=== PATIENT | male | born 1975 | race African-American/Black ===

== ENCOUNTER 2017-10-04 03:43 | Emergency (ER) | payer BC ==
[2017-10-04] MEDS ORDERED: Vancomycin(*) 1,750 MG in NS 0.9% 250 ML* 250 ML IVPB ONE (04:14)
[2017-10-04] MEDS ORDERED: Morphine INJ* 4 MG/ML 1 ML SYRINGE (NEW SYRINGE VERSION) IV ONE (04:14)
[2017-10-04] MEDS ORDERED: Piperacillin/Tazobac ADVAN(*) 3.375 GM in NS 0.9% 100 ML* 100 ML IVPB ONE (04:15)
[2017-10-04] MEDS ORDERED: Vancomycin(*) 1,750 MG in NS 0.9% 500 ML* 500 ML IVPB STA (04:18)
[2017-10-04 04:53] LABS: ABS Basophils 0.1 10^3/ul (0-0.2); ABS Eosinophils 0.1 10^3/ul (0-0.6); ABS Lymphocytes 2.1 10^3/ul (1.0-4.8); ABS Monocytes 0.8 10^3/ul (0-0.8); ABS Neutrophils 5.8 10^3/ul (1.5-7.7); ABS Nucleated RBC 0 10^3/ul; Eosinophil % 0.9 % (0-6); Hematocrit 38 % (42-52); Lymphocyte % 23.5 % (25-47); Mean Corpuscular HGB Conc 34 g/dl (31-36); Mean Corpuscular Hemoglobin 30 pg (27-31); Mean Corpuscular Volume 89 fL (80-94); Mean Platelet Volume 7.8 um3 (7.4-10.4); Nucleated Red Blood Cells % 0.1; Platelet Count 318 10^3/ul (150-450); Red Blood Count 4.29 10^6/ul (4.0-5.4); Red Cell Distribution Width 14 % (10.5-15); White Blood Count 8.9 10^3/ul (3.5-10.8)
[2017-10-04] MEDS ORDERED: Zosyn per Pharmacy* NOTE FOLLOW UP SCH (05:00)
[2017-10-04 05:03] LABS: EGFR Non-African American 72.3 (>60)
--- NOTE | 2017-10-04 06:30 | ED ---
Seamus Mina Tecjoon, scribed for Santhosh Mcnamara MD on 10/04/17 at 0412 . Laceration/Wound HPI - HPI Summary HPI Summary: This patient is a 41 year old male presenting to [facility] accompanied by with a chief complaint of right pinky laceration since 5 days ago. Patient states that he was chopping food when his knife slipped and cut his finger. Patient states over the last 2-3 days his right pinky finger and hand are extremely swollen with increased pain radiating up the arm. The pain is rated 8/10 in severity. Pt states now also increased yellow/green drainage of wound. Patient denies fevers, chills, but does report decreased movement in finger. - History of Current Complaint Stated Complaint: RT HAND INFECTION Time Seen by Provider: 10/04/17 03:52 Hx Obtained From: Patient Mechanism of Injury: Sharp/Blunt Trauma - kitchen knife Onset/Duration: Lasting Days - 5, Still Present Aggravating: Nothing Alleviating: Nothing Onset Severity: Mild Current Severity: Severe Pain Intensity: 8 Pain Scale Used: 0-10 Numeric Associated Signs & Symptoms: Negative - fever, chills, Pain - Allergy/Home Medications Allergies/Adverse Reactions: Allergies Allergy/AdvReac Type Severity Reaction Status Date / Time No Known Allergies Allergy Verified 10/04/17 03:48 Home Medications: Home Medications NK [No Home Medications Reported] 10/04/17 [History Confirmed 10/04/17] PMH/Surg Hx/FS Hx/Imm Hx Previously Healthy: Yes Opthamlomology History: Denies: Hx Legally Blind EENT History: Denies: Hx Deafness Infectious Disease History: No Infectious Disease History: Denies: Traveled Outside the [place] in Last 30 Days - Family History Known Family History: Positive: Hypertension - Social History Lives: With Family Alcohol Use: None Hx Substance Use: No Substance Use Type: Reports: None Hx Tobacco Use: No Smoking Status (MU): Never Smoked Tobacco Review of Systems Negative: Fever, Chills Positive: Other - right pinky laceration/infection All Other Systems Reviewed And Are Negative: Yes Physical Exam - Summary Physical Exam Summary: Appearance: Well-appearing, no distress, Well-nourished Skin: Warm, color reflects adequate perfusion Head: Normal Head/Face inspection Eyes: Conjunctiva clear ENT: Normal inspection Neck: Supple, Respiratory: Lungs clear, Normal breath sounds, no respiratory distress Cardio: RRR, No murmur, pulses normal, brisk capillary refill Musculoskeletal: Severe, uniform swelling of right 5th digit with open wound, green/yellow pus drainage. Decreased ROM with flexion posture, swelling to dorsum of the lateral aspect of right hand, sensation intact. Pain with passive extension Neuro: Alert, muscle tone normal, speech normal, sensory/motor intact Psychological: Normal Triage Information Reviewed: Yes Vital Signs On Initial Exam: Initial Vitals Temp Pulse Resp BP Pulse Ox 98.8 F 81 16 145/66 99 10/04/17 03:47 10/04/17 03:47 10/04/17 03:47 10/04/17 03:47 10/04/17 03:47 Vital Signs Reviewed: Yes Diagnostics - Vital Signs Vital Signs Temp Pulse Resp BP Pulse Ox 10/04/17 03:47 98.8 F 81 16 145/66 99 - Laboratory Lab Results: Lab Results 10/04/17 10/04/17 10/04/17 Range/Units 04:33 04:33 04:33 WBC 8.9 (3.5-10.8) 10^3/ul RBC 4.29 (4.0-5.4) 10^6/ul Hgb 13.0 L (14.0-18.0) g/dl Hct 38 L (42-52) % MCV 89 (80-94) fL MCH 30 (27-31) pg MCHC 34 (31-36) g/dl RDW 14 (10.5-15) % Plt Count 318 (150-450) 10^3/ul MPV 7.8 (7.4-10.4) um3 Neut % (Auto) 65.8 (38-83) % Lymph % (Auto) 23.5 L (25-47) % Arthur % (Auto) 8.8 H (0-7) % Eos % (Auto) 0.9 (0-6) % Baso % (Auto) 1.0 (0-2) % Absolute Neuts (auto) 5.8 (1.5-7.7) 10^3/ul Absolute Lymphs (auto) 2.1 (1.0-4.8) 10^3/ul Absolute Monos (auto) 0.8 (0-0.8) 10^3/ul Absolute Eos (auto) 0.1 (0-0.6) 10^3/ul Absolute Basos (auto) 0.1 (0-0.2) 10^3/ul Absolute Nucleated RBC 0 10^3/ul Nucleated RBC % 0.1 Sodium 136 (133-145) mmol/L Potassium 3.8 (3.5-5.0) mmol/L Chloride 103 (101-111) mmol/L Carbon Dioxide 26 (22-32) mmol/L Anion Gap 7 (2-11) mmol/L BUN 12 (6-24) mg/dL Creatinine 1.11 (0.67-1.17) mg/dL Est GFR ( Amer) 93.0 (>60) Est GFR (Non-Af Amer) 72.3 (>60) BUN/Creatinine Ratio 10.8 (8-20) Glucose 103 H (70-100) mg/dL Lactic Acid 0.9 (0.5-2.0) mmol/L Calcium 9.4 (8.6-10.3) mg/dL Total Bilirubin 0.60 (0.2-1.0) mg/dL AST 12 L (13-39) U/L ALT 7 (7-52) U/L Alkaline Phosphatase 63 (34-104) U/L Total Protein 8.3 (6.4-8.9) g/dL Albumin 4.2 (3.2-5.2) g/dL Globulin 4.1 H (2-4) g/dL Albumin/Globulin Ratio 1.0 (1-3) Result Diagrams: 10/04/17 04:33 10/04/17 04:33 Lab Statement: Any lab studies that have been ordered have been reviewed, and results considered in the medical decision making process. Re-Evaluation - Re-Evaluation First Eval Re-Evaluation Time: 06:14 Change: Improved Comment: Pt pain improved with IV analgesia. Pt given IV Vancomycin and Zosyn. Pt requiring I&D with [facility] in the OR. Plan for transfer to [facility] for surgical treatment. Laceration Repair Course/Dx - Course Assessment/Plan: Spoke with Dr. Yee (Ortho-Hand) at [facility] with plan for transfer for surgical intervention. Pt accepted by Dr. Andrade (EM) for transfer to ED. - Differential Dx Differental Diagnoses: Abrasion, Cellulitis, Joint Infection, Tendon Laceration , Tenosynovitis - Clinical Impression Provider Diagnoses: Flexor tenosynovitis of finger - Physician Notifications Discussed Care Of Patient With: Osman Underwood - Orthopedic Surgeon Time Discussed With Above Provider: 05:16 - We discussed patient care with Dr. Underwood (Orthopedics), who referred the patient to another surgeon more qualified to take this particular case. Discharge - Sign-Out/Discharge Documenting (check all that apply): Discharge - Discharge Plan Condition: Stable Disposition: TRANS HIGHER LVL OF CARE FAC Referrals: No Primary Care Phys,NOPCP [Primary Care Provider] - - Billing Disposition and Condition Condition: STABLE Disposition: EMTALA The documentation as recorded by the Seamus rockwell Tecjoon accurately reflects the service I personally performed and the decisions made by , Santhosh Mcnamara MD.
[2017-10-04 06:46] VITALS: BP 122/69
[2017-10-04] MEDS ORDERED: HYDROmorphone INJ* 2 MG/ML CARPUJECT SYRINGE IV SLOW PU ONE (07:26)
--- NOTE | 2017-10-04 09:45 | RAD ---
Indication: RIGHT hand fifth digit swelling 5 days post laceration while chopping wood. Comparison: No relevant prior exams available on the [facility] [place] PACS for comparison. Technique: AP and lateral views RIGHT hand. REPORT AND IMPRESSION: While detail is limited there is suggestion of a 3 mm length sliver-shaped foreign body within the soft tissues at the dorsal aspect of the fifth finger at the level of the distal interphalangeal joint. Negative for subcutaneous emphysema. Negative for fracture or malalignment. Results discussed with charge nurse Shania 10/04/2017 9:41 AM EDT
[2017-10-04] MEDS ORDERED: ZOSYN 3.375 GM Q6H - Intermittant 30 min Infusion IVPB SCH ×2 (10:00)
== END 2017-10-04 06:58 | disposition short-term general hospital (02) ==
LOC: ED 03:43
DX: M65.841 Other synovitis and tenosynovitis, right hand (principal)
CPT/HCPCS: 36415; 80053; 83605; 85025; 87040; 96365; 96367; 96375; 99283; J1170; J2270; J2543; J3370

== ENCOUNTER 2018-04-16 23:23 | Emergency (ER) | payer SELFPAY ==
[2018-04-17] MEDS ORDERED: cefTRIAXone VIAL(*) 250 MG VIAL IM ONE (00:36)
[2018-04-17] MEDS ORDERED: Azithromycin TAB* 250 MG PO ONE (00:36)
--- NOTE | 2018-04-17 00:44 | ED ---
GI/ HPI - HPI Summary HPI Summary: The patient is a 42 y/o M presenting to [facility] with a chief complaint of penile discharge starting two days ago and left testicular swelling starting today. He states the pain started when he was lifting a box, but he had unprotected vaginal intercourse 4 days ago. He denies hematuria. He has not had this pain before, but the pain is worsening, and is currently rated 8/10 in severity. - History of Current Complaint Chief Complaint: EDGeneral Time Seen by Provider: 04/17/18 00:33 Stated Complaint: TESTICULAR PAIN Hx Obtained From: Patient Onset/Duration: Started Days Ago - discharge - 2 days, swelling - today Timing: Lasting Days Severity: Mild Current Severity: Moderate Pain Intensity: 8 Additional Locations for Males: Testicles - left Associated Signs and Symptoms: Positive: Other: - left testicular swelling. Negative: Hematuria Additional Signs & Symptoms: Positive: Penile Discharge Aggravating Factor(s): Nothing Alleviating Factor(s): Nothing - Allergy/Home Medications Allergies/Adverse Reactions: Allergies Allergy/AdvReac Type Severity Reaction Status Date / Time No Known Allergies Allergy Verified 04/16/18 23:34 PMH/Surg Hx/FS Hx/Imm Hx Endocrine/Hematology History: Denies: Hx Diabetes Respiratory History: Denies: Hx Asthma Sensory History: Denies: Hx Legally Blind, Hx Deafness Opthamlomology History: Denies: Hx Legally Blind - Surgical History Surgery Procedure, Year, and Place: none Infectious Disease History: No Infectious Disease History: Denies: Traveled Outside the US in Last 30 Days - Family History Known Family History: Positive: Hypertension - Social History Alcohol Use: None Hx Substance Use: No Substance Use Type: Reports: None Hx Tobacco Use: No Smoking Status (MU): Never Smoked Tobacco Review of Systems Negative: Abdominal Pain Positive: other - discharge from penis, swelling in left testicle. Negative: hematuria All Other Systems Reviewed And Are Negative: Yes Physical Exam - Summary Physical Exam Summary: Appearance: Well-appearing, Well-nourished, lying in bed comfortably Skin: Warm, dry, no obvious rash Eyes: sclera anicteric, no conjunctival pallor ENT: mucous membranes moist, pharynx appears normal Neck: Supple, nontender Respiratory: Clear to auscultation, no signs of respiratory distress Cardiovascular: Normal S1, S2. No murmurs. Normal distal pulses in tibial and radial bilaterally. Abdomen: Soft, nontender, normal active bowel sounds present Exam: Left testicular tenderness without significant swelling Musculoskeletal: Normal, Strength/ROM Intact Neurological: A&Ox3, awake and alert, mentation is normal, speech is fluent and appropriate Psychiatric: affect is normal, does not appear anxious or depressed Triage Information Reviewed: Yes Vital Signs On Initial Exam: Initial Vitals Temp Pulse Resp BP Pulse Ox 98.5 F 95 18 124/61 97 04/16/18 23:31 04/16/18 23:31 04/16/18 23:31 04/16/18 23:31 04/16/18 23:31 Vital Signs Reviewed: Yes Diagnostics - Vital Signs Vital Signs Temp Pulse Resp BP Pulse Ox 04/16/18 23:31 98.5 F 95 18 124/61 97 - Laboratory Lab Statement: Any lab studies that have been ordered have been reviewed, and results considered in the medical decision making process. GIGU Course/Dx - Diagnoses Provider Diagnoses: Epididymoorchitis Discharge - Sign-Out/Discharge Documenting (check all that apply): Patient Departure - Patient will be discharged home. - Discharge Plan Condition: Good Disposition: HOME Patient Education Materials: Sexually Transmitted Diseases (ED), Epididymo- Orchitis (ED) Referrals: [facility] [Outside] [facility] [Outside] - If Needed No Primary Care Phys,NOPCP [Primary Care Provider] - Additional Instructions: I expect your symptoms to start improving over the weekend, if not we should see you back here on Thursday. You can take alleve or motrin for the pain, and sometimes resting the scrotum on an ice pack wrapped in a towel can help with the pain. - Billing Disposition and Condition Condition: GOOD Disposition: Home - Attestation Statements Document Initiated by Moyibe: Yes Documenting Scribe: Marly Byrnes Provider For Whom Santiago is Documenting (Include Credential): Dr. Farooq Houser MD Scribe Attestation: Marly Mina, scribed for Dr. Farooq Houser MD on 04/17/18 at 0309. Scribe Documentation Reviewed: Yes Provider Attestation: The documentation as recorded by the Marly rockwell accurately reflects the service I personally performed and the decisions made by me, Dr. Farooq Houser MD
[2018-04-17] MEDS ORDERED: Lidocaine 1%* 5 ML VIAL ONE (01:11)
[2018-04-17 01:32] LABS: Urine Appearance Turbid; Urine Blood 3+ (Negative); Urine Color Yellow; Urine Ketones Trace (Negative); Urine Protein 2+(100 mg/dL) (Negative); Urine Red Blood Cell 3+(>10/hpf) (Absent); Urine Specific Gravity 1.028 (1.010-1.030); Urine Urobilinogen Positive (Negative); Urine White Blood Cell 3+(>20/hpf) (Absent)
[2018-04-17 01:34] VITALS: BP 124/62
== END 2018-04-17 01:34 | disposition home or self-care (01) ==
LOC: ED 23:23
DX: N45.3 Epididymo-orchitis (principal); N50.89 Other specified disorders of the male genital organs
CPT/HCPCS: 81003; 81015; 87086; 96372; 99283; A9270-GY; J0696

== ENCOUNTER 2019-04-13 10:09 | Emergency (ER) | payer OTHER ==
--- NOTE | 2019-04-13 11:49 | ED ---
Skin Complaint - HPI Summary HPI Summary: Pt is a 43 y/o M presenting to the ED for a chief complaint of a skin rash. He has had the rash on his bilateral hands and feet with pruritus and cracking of the skin. Pt states the skin is odorous. His symptoms come and go and pt states he applies lotion to his bilateral hands and feet after showering. Pt denies any skin lesion anywhere else on the body or fever. Due to his job, pt states he is unable to ventilate his hands and feet. He has seen a oiler bander in the past, but has not been prescribed any medications. He has an appointment to see dermatology on 04/20/19 and sees the oiler bander, Dr. Osullivan at [facility]. Pt denies PMHx of eczema, any PSHx, or any significant FMHx. Allergies noted. - History of Current Complaint Chief Complaint: EDGeneral Time Seen by Provider: 04/13/19 11:26 Stated Complaint: BOTH HANDS/LEFT FOOT INJURIES PER PT Hx Obtained From: Patient Onset/Duration: Started Weeks Ago, Atraumatic, Still Present Skin Exposure Onset/Duration: Weeks Ago Timing: Lasting Weeks Onset Severity: Moderate Current Severity: Moderate Pain Intensity: 4 Pain Scale Used: 0-10 Numeric Skin Location: Other: - Bilateral hands and feet Character: Pruritus - Bilateral hands and feet Aggravating Symptom(s): Nothing Alleviating Symptom(s): Nothing Associated Signs & Symptoms: Negative - Allergy/Home Medications Allergies/Adverse Reactions: Allergies Allergy/AdvReac Type Severity Reaction Status Date / Time No Known Allergies Allergy Verified 04/16/18 23:34 PMH/Surg Hx/FS Hx/Imm Hx Previously Healthy: Yes Endocrine/Hematology History: Denies: Hx Diabetes Respiratory History: Denies: Hx Asthma Sensory History: Denies: Hx Legally Blind, Hx Deafness Opthamlomology History: Denies: Hx Legally Blind - Surgical History Surgical History: None Surgery Procedure, Year, and Place: none Hx Anesthesia Reactions: No Infectious Disease History: No Infectious Disease History: Denies: Traveled Outside the [place] in Last 30 Days - Family History Known Family History: Positive: Hypertension - Social History Alcohol Use: None Hx Substance Use: No Substance Use Type: Reports: None Hx Tobacco Use: No Smoking Status (MU): Never Smoked Tobacco Review of Systems Negative: Fever Positive: Other - Positive pruritus, cracking, and odorous skin on the bilateral hands and feet; negative skin lesions All Other Systems Reviewed And Are Negative: Yes Physical Exam - Summary Physical Exam Summary: Constitutional: Well-developed, Well-nourished, Alert. (-) Distressed Skin: Warm, Dry. Papular rash on hands and feet. on L foott, breakdown of skin between 3rd and 4th, and 4th and 5th toes with mild erythema/maceration of skin. HENT: Normocephalic; Atraumatic Eyes: Conjunctiva normal Neck: Musculoskeletal ROM normal neck. (-) JVD, (-) Stridor, (-) Nuchal rigidity Cardio: Rhythm regular, rate normal, Heart sounds normal; Intact distal pulses; Radial pulses are 2+ and symmetric. (-) Murmur Pulmonary/Chest wall: Effort normal. (-) Respiratory distress, (-) Wheezes, (-) Rales Abd: Soft, (-) tenderness, (-) Distension, (-) Guarding, (-) Rebound Musculoskeletal: (-) Edema Lymph: (-) Cervical adenopathy Neuro: Alert, Oriented x3 Psych: Mood and affect Normal Triage Information Reviewed: Yes Vital Signs On Initial Exam: Initial Vitals Temp Pulse Resp BP Pulse Ox 97.3 F 75 18 123/80 98 04/13/19 10:16 04/13/19 10:16 04/13/19 10:16 04/13/19 10:16 04/13/19 10:16 Vital Signs Reviewed: Yes Procedures - Sedation Patient Received Moderate/Deep Sedation with Procedure: No Diagnostics - Vital Signs Vital Signs Temp Pulse Resp BP Pulse Ox 04/13/19 10:16 97.3 F 75 18 123/80 98 - Laboratory Lab Statement: Any lab studies that have been ordered have been reviewed, and results considered in the medical decision making process. Course/Dx - Course Course Of Treatment: 43 y/o male w rash to hands/feet. - PE w papular rash, some skin breakdown between toes w macerated skin and erythema. reported drainage so will treat w keflex to cover bacterial infection. Told to keep dry as I feel moisture is contributing to skin breakdown. Neg syphillis in 2018 when rash began. Appears c/w dyshydrotic eczema. Has derm apt 04/20. Advised he can get labwork w PCP. referral made. - Diagnoses Provider Diagnoses: Rash Discharge ED - Sign-Out/Discharge Documenting (check all that apply): Patient Departure - Discharge - Discharge Plan Condition: Stable Disposition: HOME Prescriptions: Cephalexin CAP* [Keflex CAP*] 500 mg PO QID 7 Days #28 cap Patient Education Materials: Dyshidrotic Eczema (ED) Referrals: [facility] [Outside] Additional Instructions: You were seen in the emergency department for a rash. This is likely consistent with your previous known rash. Please follow up with dermatology as scheduled on April 20. Please take Keflex, an antibiotic for cellulitis. - Billing Disposition and Condition Condition: STABLE Disposition: Home - Attestation Statements Document Initiated by Scribe: Yes Documenting Scribe: Pamela Hastings Provider For Whom Santiago is Documenting (Include Credential): Samanta Black MD. Scribe Attestation: Pamela Mina, scribed for Samanta Black MD. on 04/13/19 at 1208. Scribe Documentation Reviewed: Yes Provider Attestation: The documentation as recorded by the scribePamela accurately reflects the service I personally performed and the decisions made by , Samanta Black MD. Status of Scribe Document: Viewed
[2019-04-13] MEDS: Cephalexin CAP* 500 MG PO ONE (11:59)
[2019-04-13 12:00] VITALS: BP 108/80
== END 2019-04-13 12:02 | disposition home or self-care (01) ==
LOC: ED 11:07
DX: R21 Rash and other nonspecific skin eruption (principal)
CPT/HCPCS: 99282; A9270-GY

== ENCOUNTER 2019-05-17 01:08 | Emergency (ER) | payer OTHER ==
--- OUTSIDE RECORDS SUMMARY | 2019-05-17 01:27 | XMS REPORT | Continuity of Care Document ---
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 No Information Available Social History Type Date Description Comments Sex Unknown Tobacco Use Start: Unknown Patient is a current smoker, smokes 1 ppd x 25 yrs every day Smoking Status Reviewed: 04/29/19 Patient is a current smoker, smokes 1 ppd x 25 yrs every day Allergies, Adverse Reactions, Alerts Description No Known Drug Allergies Medications Active Medications SIG Qnty Indications Ordering Date Provider Nicotrol 2 every 2 hours 336units Z72.0 Cyn Garcia, 04/29/2019 10mg Inhaler as needed DO Ra Nicotine Gum use every 2 100units Z72.0 Cyn Garcia, 04/29/2019 2mg Gum hours as needed DO for cravings Clobetasol Propionate apply to hands 30gm L24.89 Cyn Garcia, 2018 twice a day for DO 0.05% Cream two weeks, then stop BD Sensicare wear to work 100units L24.89 Cyn Garcia, 04/29/2019 [employer] daily DO Gloves Large Misc Ciprofloxacin HCL Take 1 Tablet By Unknown 500mg Mouth Two Times Tablets Daily For 2 Weeks Immunizations Description No Information Available Vital Signs Date Vital Result Comment 04/29/2019 8:01am Height 66 inches 5'6" Weight 161.00 lb Heart Rate 80 /min BP Systolic Sitting 110 mmHg BP Diastolic Sitting 62 mmHg Respiratory Rate 14 /min Body Temperature 96.9 F Pain Level 7 bilateral hands O2 % BldC Oximetry 99 % BMI (Body Mass Index) 26.0 kg/m2 Results Test Date Facility Test Result H/L Range Note Laboratory test 04/29/2019 [facility] Hemoglobin A1c <pending> finding [address] (Glyco HGB) [place] [address] [phone] Laboratory test 04/29/2019 [facility] Hepatitis C <pending> finding [address] [place] [address] [phone] Vitamin B12 And 04/29/2019 [facility] Vitamin B12 <pending> Folate Serum [address] [place] [address] [phone] Folic Acid (Folate) <pending> Laboratory test finding 04/29/2019 [facility] Ferritin <pending > [address] [place] [address] [phone] Procedures Date Code Description Status 04/20/2019 27526 Tangential Biopsy Of Skin, Single Lesion Completed Medical Devices Description No Information Available Encounters Type Date Location Provider Dx Diagnosis Office Visit 03/25/2019 [facility] Wendy Michelle L85.8 Other specified 11:00a epidermal thickening Assessments Date Code Description Provider 04/29/2019 Z00.01 Encounter for general adult medical examination Cyn Garcia DO with abnormal findings 04/29/2019 Z72.0 Tobacco use Cyn Garcia DO 04/29/2019 L24.89 Irritant contact dermatitis due to other agents Cyn Garcia DO 04/29/2019 I88.9 Nonspecific lymphadenitis, unspecified Cyn Garcia DO 04/20/2019 L30.9 Dermatitis, unspecified Wendy Michelle MD 03/25/2019 L85.8 Other specified epidermal thickening Wendy Michelle MD Plan of Treatment Future Appointment(s):05/30/2019 8:00 am - Cyn Garcia DO at [facility] - [address] - Cyn Garcia DOZ00.01 Encounter for general adult medical examination with abnormal vkkaiytjP20.0 Tobacco useNew Medication: Nicotrol 10 mg - 2 every 2 hours as neededRa Nicotine Gum 2 mg - use every 2 hours as needed for ksnrrfzwG70.89 Irritant contact dermatitis due to other agentsNew Medication:Clobetasol Propionate 0.05 % - apply to hands twice a day for two weeks, then stopBD Sensicare [employer] Gloves Large - wear to work eqlixS69.9 Nonspecific lymphadenitis, unspecifiedFollow up:one month Functional Status Description No Information Available Mental Status Description No Information Available Referrals Description No Information Available
[2019-05-17] MEDS ORDERED: NS 0.9% 1000 ML** 1,000 ML IV ONE (02:10)
[2019-05-17 02:47] LABS: ABS Basophils 0.1 10^3/ul (0-0.2); ABS Eosinophils 0.2 10^3/ul (0-0.6); ABS Lymphocytes 1.9 10^3/ul (1.0-4.8); ABS Monocytes 0.6 10^3/ul (0-0.8); ABS Neutrophils 4.8 10^3/ul (1.5-7.7); Eosinophil % 2.1 %; Hematocrit 39 % (42-52); Hemoglobin 12.6 g/dL (14.0-18.0); Mean Corpuscular HGB Conc 33 g/dL (31-36); Mean Corpuscular Hemoglobin 30 pg (27-31); Mean Corpuscular Volume 91 fL (80-94); Mean Platelet Volume 7.9 fL (7.4-10.4); Platelet Count 267 10^3/uL (150-450); Red Blood Count 4.23 10^6 /uL (4.18-5.48); Red Cell Distribution Width 13 % (10-15); White Blood Count 7.5 10^3/uL (3.5-10.8)
[2019-05-17 02:53] LABS: INR 0.99 (0.82-1.09)
[2019-05-17] MEDS ORDERED: Piperacillin/Tazobac ADVAN(*) 3.375 GM in NS 0.9% 100 ML* 100 ML IVPB ONE (02:57)
--- NOTE | 2019-05-17 02:57 | ED ---
Upper Extremity Pain - HPI Summary HPI Summary: The patient is a 43 y/o M presenting to [facility] with a chief complaint of a swelling to the left palmar hand near the pinky with pain in the second, fourth , and fifth fingers onset two days ago. He reports that he has had abscesses before, and he usually cuts them with a knife, which he did to his hand yesterday. He is unsure of the origin of the abscess. He states purulent drainage with decreased ROM in the hand, but he denies any fever, nausea, or vomiting. Currently. He rates the pain 9/10 in severity. PMHx: right hand surgery for infection. Nonsmoker, no EtOH, no substance use. Medications reviewed. Allergies noted. - History of Current Complaint Chief Complaint: EDExtremityUpper Stated Complaint: L HAND SWOLLEN PER PT Time Seen by Provider: 05/17/19 02:13 Hx Obtained From: Patient Mechanism Of Injury: Unknown - unsure of origin Onset/Duration: Started Days Ago - two, Still Present Timing: Lasting Days Severity Initially: Mild Severity Currently: Moderate Pain Location: Hand - left Character: Dull Aggravating Factor(s): Nothing Alleviating Factor(s): Nothing Associated Signs & Symptoms: Positive: Other - drainage from swelling in hand after cutting it. Negative: Fever, Nausea, Vomiting - Allergies/Home Medications Allergies/Adverse Reactions: Allergies Allergy/AdvReac Type Severity Reaction Status Date / Time No Known Allergies Allergy Verified 05/17/19 01:22 PMH/Surg Hx/FS Hx/Imm Hx Endocrine/Hematology History: Denies: Hx Diabetes Respiratory History: Denies: Hx Asthma Sensory History: Denies: Hx Legally Blind, Hx Deafness Opthamlomology History: Denies: Hx Legally Blind - Surgical History Surgical History: Yes Surgery Procedure, Year, and Place: right hand surgery in [place] Hx Anesthesia Reactions: No Infectious Disease History: No Infectious Disease History: Denies: Traveled Outside the [place] in Last 30 Days - Family History Known Family History: Positive: Hypertension - Social History Alcohol Use: None Hx Substance Use: No Substance Use Type: Reports: None Hx Tobacco Use: No Smoking Status (MU): Never Smoked Tobacco Review of Systems - ROS Summary Review of Systems Summary: Home Medications Medication Instructions Recorded Confirmed Type Amoxicillin/Clavulanate TAB* 875 mg PO BID #20 tab 05/17/19 Rx [Augmentin TAB 875*] Negative: Fever Negative: Vomiting, Nausea Positive: Other - pain in the left hand wtih decreased ROM Positive: Other - swelling of the hand on the palmar surface at the pinky, purulent drainage All Other Systems Reviewed And Are Negative: Yes Physical Exam - Summary Physical Exam Summary: General: Well-developed, Well-nourished male. No acute distress. HEENT: Normocephalic, Atraumatic. Eyes: Conjuctiva normal, PERRL. Ears: TMs within normal limits. Nares: (-) discharge, (-) erythema. Oropharynx: Clear, mucous membranes moist, (-) exudates. Neck: Soft, FROM, (-) lymphadenopathy, (-) thyromegaly, (-) JVD. Cardiovascular: Normal sinus rhythm, (-) murmur. Lungs: Clear to auscultation bilaterally (-) wheezes, (-) rales, (-) rhonchi. Abdomen: Soft, non-tender, non-distended, (-) organomegaly, normal bowel sounds. Back: (-) CVA tenderness Extremities: Moderately swollen left hand at the palm with a laceration present , Decreased ROM of the fingers with swelling of the fourth and fifth and tenderness of the second, four, and fifth fingers. No edema. Skin: Warm, dry, (-) rash. Neuro: Alert and oriented x3, no focal deficits. Psychiatric: Mood normal, affect normal. Triage Information Reviewed: Yes Vital Signs On Initial Exam: Initial Vitals Temp Pulse Resp BP Pulse Ox 99.5 F 75 15 123/75 99 05/17/19 01:20 05/17/19 01:20 05/17/19 01:20 05/17/19 01:20 05/17/19 01:20 Vital Signs Reviewed: Yes Procedures - Sedation Patient Received Moderate/Deep Sedation with Procedure: No Diagnostics - Vital Signs Vital Signs Temp Pulse Resp BP Pulse Ox 05/17/19 01:20 99.5 F 75 15 123/75 99 - Laboratory Lab Results: Lab Results 05/17/19 Range/Units 02:31 WBC 7.5 (3.5-10.8) 10^3/uL RBC 4.23 (4.18-5.48) 10^6 /uL Hgb 12.6 L (14.0-18.0) g/dL Hct 39 L (42-52) % MCV 91 (80-94) fL MCH 30 (27-31) pg MCHC 33 (31-36) g/dL RDW 13 (10-15) % Plt Count 267 (150-450) 10^3/uL MPV 7.9 (7.4-10.4) fL Neut % (Auto) 64.7 % Lymph % (Auto) 25.0 % [place] % (Auto) 7.4 % Eos % (Auto) 2.1 % Baso % (Auto) 0.8 % Absolute Neuts (auto) 4.8 (1.5-7.7) 10^3/ul Absolute Lymphs (auto) 1.9 (1.0-4.8) 10^3/ul Absolute Monos (auto) 0.6 (0-0.8) 10^3/ul Absolute Eos (auto) 0.2 (0-0.6) 10^3/ul Absolute Basos (auto) 0.1 (0-0.2) 10^3/ul Absolute Nucleated RBC 0.0 10^3/ul Nucleated RBC % 0.0 Result Diagrams: 05/17/19 02:31 11 02:31 Lab Statement: Any lab studies that have been ordered have been reviewed, and results considered in the medical decision making process. Re-Evaluation - Re-Evaluation First Eval Re-Evaluation Time: 04:40 Change: Improved Comment: I have discussed results with the patient and pain is improved. Discussed symptoms that warrant immediate return to ED. Course/Dx - Course Course Of Treatment: 43-year-old male with abscess of left hand. Patient had normal white count. Normal lactic acid. No fevers. Treated with IV Zosyn. Patient discharged home on Augmentin. Recheck within 24 hours. Follow-up sooner for any worsening symptoms. - Diagnoses Provider Diagnoses: Abscess of hand, left Discharge ED - Sign-Out/Discharge Documenting (check all that apply): Patient Departure - Patient will be discharged home. - Discharge Plan Condition: Stable Disposition: HOME Prescriptions: Amoxicillin/Clavulanate TAB* [Augmentin TAB 875*] 875 mg PO BID #20 tab Patient Education Materials: Abscess (ED) Forms: *Work Release Referrals: Cyn Garcia DO [Primary Care Provider] - 3 Days Additional Instructions: Please follow up with your primary care physician within three days. Please return to ED for any new or worsening symptoms. - Billing Disposition and Condition Condition: STABLE Disposition: Home - Attestation Statements Document Initiated by Santiago: Yes Documenting Scribe: Marly Byrnes Provider For Whom Santiago is Documenting (Include Credential): Dr. Sandra Peterson MD Scribe Attestation: IMarly scribed for Dr. Sandra Peterson MD on 05/17/19 at 0613. Scribe Documentation Reviewed: Yes Provider Attestation: The documentation as recorded by the Marly rockwell accurately reflects the service I personally performed and the decisions made by me, Dr. Sandra Peterson MD Status of Scribe Document: Viewed
[2019-05-17 03:07] LABS: Albumin/Globulin Ratio 1.2 (1-3); BUN/Creatinine Ratio 10.2 (8-20); EGFR African American 89.5 (>60); EGFR Non-African American 73.9 (>60); Globulin 3.3 g/dL (2-4); Potassium 3.9 mmol/L (3.5-5.0); Total Bilirubin 0.3 mg/dL (0.2-1.0); Total Protein 7.3 g/dL (6.4-8.9)
[2019-05-17 04:29] LABS: Urine Appearance Clear; Urine Bilirubin Negative (Negative); Urine Blood Negative (Negative); Urine Color Yellow; Urine Glucose Negative (Negative); Urine Ketones Negative (Negative); Urine Nitrite Negative (Negative); Urine Protein Negative (Negative); Urine Specific Gravity 1.023 (1.010-1.030); Urine Urobilinogen Positive (Negative)
[2019-05-17 04:47] VITALS: BP 103/58
== END 2019-05-17 04:46 | disposition home or self-care (01) ==
LOC: ED 01:08
DX: L02.512 Cutaneous abscess of left hand (principal)
CPT/HCPCS: 36415; 80053; 81003; 83605; 85025; 85610; 87040; 96361; 96365; 99283; J2543